=== PATIENT | female | born 1955 ===

== ENCOUNTER → 2017-08-27 14:56 | Outpatient (CLI) | payer BC ==
[2017-08-27 15:47] LABS: INR 0.99 (0.85-1.17); PROTIME 12.9 SECONDS (11.6-15.0)
== END | disposition home or self-care (01) ==
LOC: D.LABREF 14:56
PROVIDERS: Orthopaedic Surgery
DX: Z51.81 Encounter for therapeutic drug level monitoring (principal); Z79.01 Long term (current) use of anticoagulants